=== PATIENT | male | born 1950 | race Caucasian/White ===

== ENCOUNTER → 2020-09-30 | Outpatient (CLI) | payer MEDICARE, OTHER | LOC: RAD 08:40 | DX: R10.9 Unspecified abdominal pain (principal) | CPT/HCPCS: 74018 ==

== ENCOUNTER → 2020-10-05 | Outpatient (CLI) | payer MEDICARE, OTHER | LOC: RAD 11:35 | DX: M54.6 Pain in thoracic spine (principal) | CPT/HCPCS: 71045; 71101 ==

== ENCOUNTER → 2021-02-15 | Outpatient (CLI) | payer MEDICARE | LOC: KOH-I 12-21 08:30 → CT 13:30 | DX: Z87.891 Personal history of nicotine dependence (principal); R91.1 Solitary pulmonary nodule | CPT/HCPCS: 71271 ==

== ENCOUNTER → 2021-09-12 | Outpatient (CLI) | payer MEDICARE | LOC: RAD 10:48 | DX: M25.562 Pain in left knee (principal); M79.89 Other specified soft tissue disorders; M25.462 Effusion, left knee | CPT/HCPCS: 73562 ==

== ENCOUNTER → 2021-09-15 | Outpatient (CLI) | payer MEDICARE | LOC: EXRD 14:15 | DX: R10.9 Unspecified abdominal pain (principal) | CPT/HCPCS: 76775 ==

== ENCOUNTER → 2022-02-27 | Outpatient (CLI) | payer MEDICARE, OTHER ==
[2022-02-27 16:24] LABS: BUN/CREATININE RATIO 13 (0-10)
== END ==
LOC: CT 15:00
PROVIDERS: Internal Medicine Pulmonary Disease
DX: Z87.891 Personal history of nicotine dependence (principal); R91.8 Other nonspecific abnormal finding of lung field; E55.9 Vitamin D deficiency, unspecified; E78.5 Hyperlipidemia, unspecified; R97.20 Elevated prostate specific antigen [PSA]; E11.9 Type 2 diabetes mellitus without complications; E03.8 Other specified hypothyroidism
CPT/HCPCS: 36415; 71271; 80053; 80061; 82652; 83036; 84153; 84439; 84443